=== PATIENT | female | born 1965 ===

== ENCOUNTER 2025-03-03 18:24 | Outpatient (REF) | payer MEDICAID, SELFPAY ==
[2025-03-03 20:00] LABS: Hemoglobin A1C 6.6 % (<5.7)
== END 2025-03-03 18:25 | disposition home or self-care (01) ==
LOC: LBN 18:24
PROVIDERS: Visit Provider Nurse Practitioner Gerontology
DX: E11.9 Type 2 diabetes mellitus without complications (principal)
CPT/HCPCS: 83036